=== PATIENT | male | born 1965 | race Caucasian/White ===

== ENCOUNTER 2023-04-14 07:59 | Day surgery (SDC) | payer OTHER ==
[~2023-04-14 07:59] MED LIST: Lactated Ringers 1,000 ML IV SCH; Sodium Chloride 0.9% 10 ML Syringe FLUSH PRN; Sodium Chloride 0.9% 2.5 ML Syringe FLUSH PRN; Sodium Chloride 0.9% 20 ML SDV IV PRN
[2023-04-14] MEDS ORDERED: propofoL 50 ML ONE (09:15)
[2023-04-14] MEDS ORDERED: Ketamine 500 mg/10 ML MDV ONE (09:16)
[2023-04-14] MEDS ORDERED: Midazolam 1 MG/ML 2 ML SDV ONE (09:16)
[2023-04-14] MEDS ORDERED: Albuterol/Ipratropium 3.0-0.5 MG/3 ML Neb Soln NEB ONE (09:21)
[2023-04-14] MEDS ORDERED: Albuterol/Ipratropium 3.0-0.5 MG/3 ML Neb Soln ONE (09:23)
== END 2023-04-14 11:25 | disposition home or self-care (01) ==
LOC: MW.SDS 07:59
PROVIDERS: ATTEND Surgery
DX: Z12.11 Encounter for screening for malignant neoplasm of colon (principal); D12.8 Benign neoplasm of rectum; K57.30 Diverticulosis of large intestine without perforation or abscess without bleeding; E78.5 Hyperlipidemia, unspecified; E66.01 Morbid (severe) obesity due to excess calories; Z80.0 Family history of malignant neoplasm of digestive organs; F17.210 Nicotine dependence, cigarettes, uncomplicated; G47.33 Obstructive sleep apnea (adult) (pediatric); E11.9 Type 2 diabetes mellitus without complications; I10 Essential (primary) hypertension; Z79.84 Long term (current) use of oral hypoglycemic drugs; Z79.4 Long term (current) use of insulin; Z79.899 Other long term (current) drug therapy; Z68.43 Body mass index [BMI] 50.0-59.9, adult
CPT/HCPCS: 45380; 45385; 82947; J2250; J2704; J3490; J7120; 00811; J7620-GY